=== PATIENT | female | born 2000 | race Caucasian/White ===

== ENCOUNTER 2023-02-14 17:49 | Emergency (ER) | payer SELFPAY ==
[~2023-02-14] VITALS: Ht 149.9 cm; Wt 78.8 kg
[2023-02-14 19:27] LABS: BASO % 0.1 % (0.0-1.0); HEMATOCRIT 44.2 % (36.0-47.0); HEMOGLOBIN 14.6 g/dl (12.0-15.5); LYMPH # 0.5 10^3/uL (1.5-5.0); LYMPH % 3.5 % (24.0-44.0); MEAN CORPUSCULAR VOLUME 87.7 fl (80.0-96.0); MONO # 0.5 10^3/uL (0.0-0.8); MONO % 3.3 % (2.0-8.0); NEUTROPHILS # 12.8 10^3/uL (1.5-8.5); NEUTROPHILS % 92.6 % (36.0-66.0); PLATELET COUNT, AUTOMATED 275 10^3/uL (150-450); RED BLOOD COUNT 5.04 10^6/uL (4.00-5.40); WHITE BLOOD COUNT 13.8 10^3/uL (4.0-10.0)
[2023-02-14 19:52] LABS: LIPASE 33 U/L (12-53)
[2023-02-14 19:55] LABS: ALKALINE PHOSPHATASE 83 U/L (46-116); ALT/SGPT 22 U/L (7.0-40); AST/SGOT 20 U/L (<34); BILIRUBIN,DIRECT 0.4 MG/DL (<0.4); BILIRUBIN,TOTAL 1.1 MG/DL (0.3-1.2); BLOOD UREA NITROGEN 18 MG/DL (9-23); CALCIUM LEVEL 8.8 MG/DL (8.5-10.1); CARBON DIOXIDE LEVEL 25 MMOL/L (20-31); CHLORIDE LEVEL 105 MMOL/L (98-107); CREATININE FOR GFR 0.73 MG/DL (0.55-1.30); GLOMERULAR FILTRATION RATE > 60.0 (>60); GLUCOSE, FASTING 99 MG/DL (60-100); HCG, SERUM QUALITATIVE NEGATIVE (NEGATIVE); POTASSIUM SERUM 4.3 MMOL/L (3.5-5.1); SODIUM LEVEL 138 MMOL/L (136-145); TOTAL PROTEIN 7.5 G/DL (5.7-8.2)
[2023-02-14] MEDS ORDERED: ISOVUE-370 76% 100ML VIAL As Ordered ONE (20:00)
[2023-02-14 21:47] LABS: GC DNA AMPLIFICATION NEGATIVE (NEGATIVE)
[2023-02-14] MEDS ORDERED: metroNIDAZOLE (FLAGYL) 500MG TABLET PO ONE (22:15)
[2023-02-14] MEDS ORDERED: ONDA4TAB6 PO (22:22)
[2023-02-14] MEDS ORDERED: METR-265 PO (22:22)
[2023-02-14 22:39] VITALS: BP 109/59
== END 2023-02-14 22:41 | disposition home or self-care (01) ==
LOC: M ED 17:49
DX: I88.0 Nonspecific mesenteric lymphadenitis (principal); N76.0 Acute vaginitis; R11.10 Vomiting, unspecified
CPT/HCPCS: 36415; 74177; 80048; 80076; 81001; 83690; 84703; 85025; 87210; 87810; 87850; 99284; Q9967

== ENCOUNTER → 2024-07-22 | Outpatient (CLI) | payer OTHER ==
[~2024-07-22] MED LIST: METR-265 PO; ONDA-282 PO
[2024-07-22 13:18] LABS: HEMATOCRIT 37.5 % (36.0-47.0); HEMOGLOBIN 12.6 g/dl (12.0-15.5); MEAN CORPUSCULAR HEMOGLOBIN 29.3 pg (27.0-33.0); MEAN CORPUSCULAR HGB CONC 33.6 g/dl (32.0-36.5); MEAN CORPUSCULAR VOLUME 87.2 fl (80.0-96.0); PLATELET COUNT, AUTOMATED 218 10^3/uL (150-450); WHITE BLOOD COUNT 8.8 10^3/uL (4.0-10.0)
[2024-07-22 14:01] LABS: HIV 1&2 SCREEN NEGATIVE (NEGATIVE)
[2024-07-22 14:41] LABS: GC DNA AMPLIFICATION NEGATIVE (NEGATIVE)
[2024-07-23 17:47] LABS: HCV RNA QUANTITATION <15 NOT DETECTED IU/mL (NOT DETECTED); HCV RNA log10 <1.18 NOT DETECTED Log IU/mL (NOT DETECTED)
== END ==
LOC: M PLALAB 10:00
PROVIDERS: ATTEND Obstetrics & Gynecology
DX: Z34.01 Encounter for supervision of normal first pregnancy, first trimester (principal)

== ENCOUNTER → 2024-11-04 | Outpatient (CLI) | payer OTHER | LOC: M WHC 06:45 | PROVIDERS: ATTEND Obstetrics & Gynecology | DX: Z34.82 Encounter for supervision of other normal pregnancy, second trimester (principal) ==

== ENCOUNTER → 2024-11-19 | Outpatient (CLI) | payer OTHER ==
[2024-11-19 13:57] LABS: HEMATOCRIT 38.1 % (36.0-47.0); HEMOGLOBIN 12.5 g/dl (12.0-15.5); MEAN CORPUSCULAR HEMOGLOBIN 30.1 pg (27.0-33.0); MEAN CORPUSCULAR HGB CONC 32.8 g/dl (32.0-36.5); MEAN CORPUSCULAR VOLUME 91.8 fl (80.0-96.0); PLATELET COUNT, AUTOMATED 216 10^3/uL (150-450); RED BLOOD COUNT 4.15 10^6/uL (4.00-5.40); WHITE BLOOD COUNT 9.8 10^3/uL (4.0-10.0)
[2024-11-19 14:26] LABS: GLUCOSE CHALLENGE TEST 1 HOUR 102 MG/DL (LESS THAN 140)
[2024-11-19 15:00] LABS: HIV 1&2 SCREEN NEGATIVE (NEGATIVE)
[2024-11-19 15:16] LABS: HEPATITIS C VIRUS ABY INDEX 1.27 INDEX (<0.8)
[2024-11-19 15:35] LABS: GC DNA AMPLIFICATION NEGATIVE (NEGATIVE)
== END ==
LOC: M PLALAB 08:29
PROVIDERS: ATTEND Obstetrics & Gynecology
DX: Z34.92 Encounter for supervision of normal pregnancy, unspecified, second trimester (principal)

== ENCOUNTER 2025-01-01 10:05 | Outpatient (CLI) | payer OTHER ==
[~2025-01-01] VITALS: Ht 149.9 cm; Wt 86.0 kg
[2025-01-01 10:42] VITALS: BP 85/60
[2025-01-01 10:46] VITALS: BP 93/61
[2025-01-01] MEDS ORDERED: PRENTAB9 PO (10:49)
[2025-01-01 11:54] LABS: HEMATOCRIT 34.2 % (36.0-47.0); HEMOGLOBIN 11.5 g/dl (12.0-15.5); MEAN CORPUSCULAR HEMOGLOBIN 29.9 pg (27.0-33.0); MEAN CORPUSCULAR HGB CONC 33.6 g/dl (32.0-36.5); MEAN CORPUSCULAR VOLUME 88.8 fl (80.0-96.0); PLATELET COUNT, AUTOMATED 187 10^3/uL (150-450); RED BLOOD COUNT 3.85 10^6/uL (4.00-5.40); WHITE BLOOD COUNT 9.2 10^3/uL (4.0-10.0)
[2025-01-01 12:09] LABS: INR 0.96; PARTIAL THROMBOPLASTIN TIME 26.6 SECONDS (24.8-34.2); PROTHROMBIN TIME 13.1 SECONDS (12.5-14.5)
== END 2025-01-01 11:50 | disposition home or self-care (01) ==
LOC: M LDO 10:05
PROVIDERS: ATTEND Obstetrics & Gynecology
DX: O47.03 False labor before 37 completed weeks of gestation, third trimester (principal); W00.0XXA Fall on same level due to ice and snow, initial encounter; Z3A.33 33 weeks gestation of pregnancy; Y92.9 Unspecified place or not applicable; Y93.9 Activity, unspecified; Y99.9 Unspecified external cause status
CPT/HCPCS: 36415; 59025; 85027; 85384; 85460; 85610; 85730; G0463

== ENCOUNTER → 2025-01-23 | Outpatient (REF) | payer OTHER ==
[~2025-01-23] MED LIST changes: +PRENTAB9 PO
== END ==
LOC: M SFHCWAGY 14:50
PROVIDERS: ATTEND Advanced Practice Midwife
DX: Z34.03 Encounter for supervision of normal first pregnancy, third trimester (principal); Z67.31 Type AB blood, Rh negative; Z3A.36 36 weeks gestation of pregnancy; Z91.02 Food additives allergy status

== ENCOUNTER 2025-02-16 08:50 | Inpatient (IN) | payer OTHER ==
[~2025-02-16] VITALS: Ht 149.9 cm; Wt 90.8 kg
[2025-02-16] MEDS ORDERED: TUMS500C PO (09:13)
[2025-02-16 09:15] VITALS: O2SAT 97
[2025-02-16] MEDS: LACTATED RINGER'S 1000 ML IV STA (09:42)
[2025-02-16] MEDS ORDERED: CARBOPROST TROMETHAMINE 250 MCG/ML AMP IM PRN (09:45)
[2025-02-16] MEDS ORDERED: OXYTOCIN INJ 10UNITS/ML 1ML VIAL IM PRN (09:45)
[2025-02-16] MEDS ORDERED: METHYLERGONOVINE MALEATE 0.2MG/ML 1ML VIAL IM PRN (09:45)
[2025-02-16] MEDS ORDERED: LIDOCAINE 1% MDV 20ML VIAL INFIL PRN (09:45)
[2025-02-16] MEDS ORDERED: OXYTOCIN DRIP 30 UNITS in IV 1 EA IV PRN (09:45)
[2025-02-16] MEDS ORDERED: TRANEXAMIC ACID INJection 1,000 MG in NS 100 ML IV PRN (09:45)
[2025-02-16 11:08] LABS: HEMATOCRIT 36.3 % (36.0-47.0); HEMOGLOBIN 12.1 g/dl (12.0-15.5); MEAN CORPUSCULAR HEMOGLOBIN 28.3 pg (27.0-33.0); MEAN CORPUSCULAR HGB CONC 33.3 g/dl (32.0-36.5); PLATELET COUNT, AUTOMATED 209 10^3/uL (150-450); RED BLOOD COUNT 4.27 10^6/uL (4.00-5.40); WHITE BLOOD COUNT 11.5 10^3/uL (4.0-10.0)
[2025-02-16 12:09] LABS: HIV 1&2 SCREEN NEGATIVE (NEGATIVE)
[2025-02-16 19:44] VITALS: BP 130/58
[2025-02-16 20:08] VITALS: BP 119/68
[2025-02-16] MEDS ORDERED: LR 1,000 ML IV SCH (22:35)
[2025-02-16 22:44] VITALS: BP 121/69
[2025-02-16] MEDS: PROMETHAZINE 25MG/ML 1ML VIAL IV ONE (22:44)
[2025-02-16] MEDS: BUTORPHANOL 2 MG/ML 1ML VIAL IV ONE (22:44)
[2025-02-16] MEDS: OXYTOCIN DRIP 30 UNITS in IV 1 EA IV SCH (22:45)
[2025-02-16 23:15] VITALS: BP 127/77
[2025-02-16 23:46] VITALS: BP 120/78
[2025-02-17] VITALS (7 sets, daily range): BP systolic 101–136; BP diastolic 53–68; O2SAT 97–98
[2025-02-17] MEDS ORDERED: ACETAMINOPHEN 500 MG TAB PO PRN (02:30)
[2025-02-17] MEDS ORDERED: DIBUCAINE 1% OINTMENT 30GM TOP PRN (02:30)
[2025-02-17] MEDS ORDERED: ACETAMINOPHEN 325 MG TAB PO PRN (02:30)
[2025-02-17] MEDS ORDERED: ANUSOL HC CREAM 30GM TOP PRN (02:30)
[2025-02-17] MEDS ORDERED: IBUPROFEN 600MG TAB PO PRN (02:30)
[2025-02-17] MEDS ORDERED: IBUPROFEN 800 MG TAB PO PRN (02:30)
[2025-02-17] MEDS ORDERED: MOM 30ML SUSPENSION UDC PO PRN (02:30)
[2025-02-17] MEDS: PRENATAL VITAMINS CHEWABLE TABLET PO SCH (07:53)
[2025-02-17] MEDS: RHOGAM 300MCG (1500IU) INJ IM SCH (18:03)
[2025-02-18 05:35] VITALS: BP 112/62; O2SAT 98
[2025-02-18 16:51] LABS: HCV RNA QUANTITATION <15 NOT DETECTED IU/mL (NOT DETECTED); HCV RNA log10 <1.18 NOT DETECTED Log IU/mL (NOT DETECTED)
[2025-02-18 18:00] VITALS: BP 123/73; O2SAT 97
[2025-02-19 05:59] VITALS: BP 118/78; O2SAT 96
[2025-02-19] MEDS ORDERED: MEASLES,MUMPS,RUBELLA VACCINE INJ (MMR-II) SC.IMMUN ONE (09:00)
== END 2025-02-19 14:20 | disposition home or self-care (01) | DRG 807 ==
LOC: M LDO 08:50 → M LDI 09:48 → M OBS 02-17 03:32
PROVIDERS: ADMIT Advanced Practice Midwife; ATTEND Advanced Practice Midwife
PROC: 10E0XZZ Delivery of Products of Conception, External Approach (ICD-10-PCS; principal; 2025-02-17)
DX: O80 Encounter for full-term uncomplicated delivery (principal); Z37.0 Single live birth; Z3A.39 39 weeks gestation of pregnancy

== ENCOUNTER → 2025-07-17 | Outpatient (REF) | payer OTHER ==
[~2025-07-17] MED LIST changes: +TUMS500C PO
== END ==
LOC: M SFHCWAGY 10:04
PROVIDERS: ATTEND Advanced Practice Midwife
DX: Z12.4 Encounter for screening for malignant neoplasm of cervix (principal); Z77.9 Other contact with and (suspected) exposures hazardous to health